=== PATIENT | female | born 1975 | race Caucasian/White ===

== ENCOUNTER 2018-09-07 08:53 | Emergency (ER) | payer BC ==
[2018-09-07] MEDS ORDERED: Sulfamethoxazole/TMP 800/160mg Tab PO ONE (10:00)
[2018-09-07] MEDS ORDERED: Sulfamethoxazole/TMP 800/160mg Tab ONE (10:02)
--- NOTE | 2018-09-07 10:08 | ED Physician Chart ---
ED Chief Complaint/HPI - Patient Information Date Seen:: 09/07/18 Time Seen:: 09:30 Chief Complaint:: pain right thumb History of Present Illness:: 2 days ago patient struck her right thumb on a vacuum grounds cleaner after which she developed pain and swelling of the distal segment. Patient is right-hand dominant. No chills or fever. Patient complains of throbbing pain of her right thumb. Patient normally bites her fingernails Allergies:: Allergies Allergy/AdvReac Type Severity Reaction Status Date / Time No Known Allergies Allergy Verified 09/07/18 09:15 Vitals:: Vital Signs - 8 hr 09/07/18 09:15 Temp 99.2 F HR 115 RR 16 BP 123/64 O2 Sat % 100 Historian:: Patient Review:: Nurse's Note Reviewed ED Review of Systems - Review of Systems General/Constitutional: No fever, No chills Skin: Skin lesions Head: No headache Eyes: No loss of vision ENT: No earache Neck: No neck pain, No swelling Cardio Vascular: No chest pain, No palpitations Pulmonary: No SOB GI: No nausea, No vomiting, No diarrhea G/U: No dysuria Musculoskeletal: No bone or joint pain Endocrine: No polyuria Psychiatric: No prior psych history Hematopoietic: No bruising Allergic/Immuno: No urticaria Neurological: No syncope, No focal symptoms ED Past Medical History - Past Medical History Past Medical History: No significant medical hx Social History: Smoker, Alcohol Employment:: Smokes one pack of cigarettes a week; drinks alcohol occasionally Surgical History: None Psychiatricy History: None Family Medical History - Family Member Father History Unknown: Yes ED Physical Exam - Physical Examination General/Constitutional: Awake, Well-developed, well-nourished, Alert, No distress, GCS 15, Non-toxic appearing, Ambulatory Head: Atraumatic Eyes: Lids, conjuctiva normal, PERRL, EOMI Skin: No rash, No ecchymosis Other Skin comments:: Right thumb: Redness of the distal segment; about 2 x 1 mm apparent pus under midline base of nail ENMT: External ears, nose nl, Nasal exam nl, Lips, teeth, gums nl Neck: Nontender, Full ROM w/o pain, No JVD, No nuchal rigidity, No bruit, No mass, No stridor Respiratory: Nl effort/Exclusion, Clear to Auscultation, No Wheeze/Rhonchi/Rales Cardio Vascular: RRR, No murmur, gallop, rubs, NL S1 S2 GI: No tenderness/rebounding/guarding, No organomegaly, No hernia, Normal BS's, Nondistended, No mass/bruits, No McBurney tenderness : No CVA tenderness Extremities: No tenderness or effusion, Full ROM, normal strength in all extremities, No edema, Normal digits & nails Neuro/Psych: Alert/oriented, DTR's symmetric, Normal sensory exam, Normal motor strength, Judgement/insight normal, Mood normal, Normal gait, No focal deficits Misc: Normal back, No paraspinal tenderness ED Assessment - Procedures Procedures:: after base of right thumb cleansed with alcohol swab 1% Xylocaine used for digital block; after about 10 minutes electrocautery used to evacuate. pus underneath base of the nail; 2-3 large drops of thick greenish-augustine pus out. Band-Aid applied ED Septic Shock - . Is Septic Shock (SBP<90, OR Lactate>4 mmol\L) present?: No - <6hrs of presentation: Vital Signs: Vital Signs - 8 hr / 09:15 Temp 99.2 F HR 115 RR 16 BP 123/64 O2 Sat % 100 ED Reassessment (Disposition) - Reassessment Reassessment Condition:: Improved - Diagnosis Diagnosis:: Subungual abscess and cellulitis right thumb - Aftercare/Follow up Instructions Medication Prescribed:: Keflex 500 mg 4 times a day for 10 days and Bactrim double strength one twice daily for 10 days - Patient Disposition Discharge/Transfer:: Home Condition at Disposition:: Stable, Improved
== END 2018-09-07 10:12 | disposition home or self-care (01) ==
LOC: ER 08:53
DX: L03.011 Cellulitis of right finger (principal); F17.210 Nicotine dependence, cigarettes, uncomplicated
CPT/HCPCS: 64450; Z7502; Z7610